=== PATIENT | female | born 2005 | race Caucasian/White ===

== ENCOUNTER → 2023-07-09 | Outpatient (CLI) | payer BC ==
--- NOTE | 2023-07-09 13:02 | US ---
EXAMINATION TYPE: US abdomen complete DATE OF EXAM: 07/09/2023 COMPARISON: NONE CLINICAL INDICATION: Female, 18 years old with history of R85.0 ABN LEVELS OF ENZYMES IN SPECIMENS FR OM DIGESTIVE ORGA; Pt states abnormal pancreatic labs, has no other complaints at this time TECHNIQUE: Multiple sonographic images of the abdomen are obtained. FINDINGS: EXAM MEASUREMENTS: Liver Length: 16.5 cm Gallbladder Wall: 0.2 cm CBD: 0.2 cm Spleen: 10.4 cm Right Kidney: 11.5 x 2.8 x 5.1 cm Left Kidney: 11.7 x 4.3 x 4.9 cm X RAY PHYSICIAN NOTES: Pancreas: wnl Liver: wnl Gallbladder: wnl Evidence for sonographic Martinez's sign: No CBD: wnl Spleen: wnl Right Kidney: wnl Left Kidney: wnl Upper IVC: wnl Abd Aorta: wnl No abnormality visualized within abdomen at this time IMPRESSION: 1. Normal abdomen ultrasound.
== END | disposition home or self-care (01) ==
LOC: RADUSWWP 07:09
PROVIDERS: ATTEND Family Medicine
DX: R85.0 Abnormal level of enzymes in specimens from digestive organs and abdominal cavity (principal)
CPT/HCPCS: 76700

== ENCOUNTER 2023-08-17 13:06 | Day surgery (SDC) | payer BC ==
[~2023-08-17 13:06] MED LIST: LIDOCAINE 1% (10MG/ML) FOR IV START INTRADERMA PRN
[2023-08-17] MEDS: LACTATED RINGERS 1,000 ML IV SCH (15:06)
[2023-08-17 15:27] VITALS: TEMP 98.2
[2023-08-17] MEDS ORDERED: PROPOFOL 10 MG/ML 20 ML VIAL IV ONE (16:11)
--- NOTE | 2023-08-17 16:20 | P.PCN ---
Date of Procedure: 08/17/23 Procedure(s) Performed: BRIEF HISTORY: Patient is a 18-year-old, pleasant, white female scheduled for an upper endoscopy as a part of evaluation of abdominal bloating and positive celiac serology.. PROCEDURE PERFORMED: Esophagogastroduodenoscopy with biopsy. PREOPERATIVE DIAGNOSIS: Positive serology for celiac disease. IV sedation per anesthesia. PROCEDURE: After informed consent was obtained, the patient was brought into the endoscopy unit. IV sedation was administered by Anesthesia under continuous monitoring. Initially the Olympus GIF-140 video endoscope was inserted into the mouth. Esophagus intubated without any difficulty. It was gradually advanced into the stomach and duodenum and carefully examined. The bulb and the second part of the duodenum appeared normal. Multiple biopsies were done from the duodenum to evaluate for celiac disease the scope at this time was withdrawn to the stomach, adequately insufflated with air, and upon careful examination, mucosa of the antrum, patchy areas of erythema which was biopsied. Mucosa of the body, cardia and the fundus appeared normal. The scope was then withdrawn into the esophagus. The GE junction was located at 39 cm from the incisors. Small hiatal hernia noted. The esophagus appeared normal. There was circumferential erythema of the GE junction consistent with LA grade a reflux esophagitis. Rest of the esophagus appeared normal and the patient tolerated the procedure well. IMPRESSION: 1. Mucosa of the duodenum appeared normal status post multiple biopsies to evaluate for celiac disease. 2. Small hiatal hernia and LA grade a reflux esophagitis 3. Mild antral gastritis. RECOMMENDATIONS: The findings of this examination were discussed with the patient as well as her family. She was advised to follow-up with the biopsy results. Follow-up in the office in 2 weeks..
[2023-08-17 17:25] VITALS: BP 99/48; PULSE 61; RESP 18
== END 2023-08-17 17:16 | disposition home or self-care (01) ==
LOC: ORWHC2ENDO 13:06
PROVIDERS: ATTEND Internal Medicine Gastroenterology
DX: K29.50 Unspecified chronic gastritis without bleeding (principal); K44.9 Diaphragmatic hernia without obstruction or gangrene; K21.00 Gastro-esophageal reflux disease with esophagitis, without bleeding; K29.80 Duodenitis without bleeding; D72.820 Lymphocytosis (symptomatic); Z79.899 Other long term (current) drug therapy
CPT/HCPCS: 81025; 88305; 43239; J2704

== ENCOUNTER → 2024-03-07 | Outpatient (CLI) | payer BC ==
--- NOTE | 2024-03-07 12:14 | CT ---
EXAMINATION TYPE: CT abdomen pelvis wo/w con CT DLP: 1244 mGycm, Automated exposure control for dose reduction was used. DATE OF EXAM: 03/07/2024 11:48 AM COMPARISON: Abdominal ultrasound 07/09/2023 CLINICAL INDICATION:Female, 19 years old with history of R14.0 ABDOMINAL DISTENSION (GASEOUS); Abdomi nal pain, hx of celiac disease TECHNIQUE: Standard CT of the before and after the uneventful administration of 100 cc of Isovue-30 0 intravenously. Oral contrast was administered . Coronal and sagittal reformats were performed. FINDINGS: Limited examination due to paucity of intraabdominal fat. LOWER CHEST: Left lower lobe 3.6 mm solid pulmonary nodule (series 9, image 2). Doubtful clinical sig nificance due to patient's age. Remaining lungs are clear. ABDOMEN LIVER: Unremarkable GALLBLADDER AND BILE DUCTS: Unremarkable. PANCREAS: Unremarkable. SPLEEN: Unremarkable. ADRENAL GLANDS: Unremarkable. KIDNEYS AND URETERS: No evidence of hydronephrosis or renal calculus. The exam is symmetrically. Cont rast is demonstrated within both collecting systems on the delayed phase. PELVIS BLADDER: Incompletely distended but grossly unremarkable. REPRODUCTIVE: Unremarkable anteverted uterus. Crenulated corpus luteal cyst within the right ovary me asured 1.3 cm. ABDOMEN & PELVIS STOMACH AND BOWEL: Stomach and duodenum are unremarkable. Enteric contrast reaches the distal small b owel. Long segment circumferential wall thickening of the jejunum identified within the left upper qu adrant. No surrounding inflammatory changes. No evidence of bowel obstruction. PERITONEUM: No evidence of pneumoperitoneum. Small amount of free fluid in the pelvis which is likely physiologic. VASCULATURE: No evidence of aortic aneurysm. MUSCULOSKELETAL: No acute osseous abnormalities. Multilevel small Schmorl's nodes. LYMPH NODES: No evidence for lymphadenopathy. SOFT TISSUE/ABDOMINAL WALL: Unremarkable IMPRESSION: Circumferential wall thickening of the jejunum within the left upper quadrant which may relate to rep orted celiac disease versus other etiologies. No surrounding inflammatory changes. Consider further e valuation with small bowel follow-through. Otherwise no other evidence for acute abnormality. [facility], , 03/07/2024 12:12 PM
== END | disposition home or self-care (01) ==
LOC: RADCTMAIN 09:58
PROVIDERS: ATTEND Internal Medicine Gastroenterology
DX: N85.4 Malposition of uterus (principal); R14.0 Abdominal distension (gaseous); N83.11 Corpus luteum cyst of right ovary; K90.0 Celiac disease
CPT/HCPCS: 74178; Q9967

== ENCOUNTER → 2024-04-04 | Outpatient (CLI) | payer BC ==
--- NOTE | 2024-04-04 10:51 | XR ---
EXAMINATION TYPE: XR chest 2V DATE OF EXAM: 04/04/2024 10:18 AM COMPARISON: 03/31/2011 CLINICAL INDICATION: Female, 19 years old with history of R06.09 OTHER FORMS OF DYSPNEA, TECHNIQUE: Frontal and lateral views of the chest are obtained. FINDINGS: There is no focal air space opacity, pleural effusion, or pneumothorax seen. The cardiac silhouette size is within normal limits. The osseous structures are intact. IMPRESSION: No acute cardiopulmonary process. [facility], , 04/04/2024 10:49 AM
--- NOTE | 2024-04-04 12:07 | FL ---
EXAMINATION TYPE: FL UGI air w small bowel DATE OF EXAM: 04/04/2024 10:17 AM COMPARISON: None CLINICAL INDICATION:Female, 19 years old with history of K90.0 Celiac disease; TECHNIQUE: The procedure was explained and patient history elicited. All patient questions were ans wered prior to start of procedure. A concrete mixing plant superintendent radiograph of the abdomen was also reviewed. Multiple flu oroscopic spot images of the esophagus, stomach and duodenum were obtained following ingestion of liq uid barium and EZ-gas crystals. After the completion of the upper gastrointestinal examination, a de tailed small bowel examination was performed. The patient was asked to ingest additional liquid [place] um and incremental frontal abdominal radiographs were then taken until contrast was visualized in the cecum. Fluoroscopic time:1.35 min Fluoroscopic images:0 Radiographs taken: 66 DAP: NOT REPORTED [id number] FINDINGS: Upper GI examination: The concrete mixing plant superintendent abdominal radiograph demonstrates a normal bowel gas pattern without dilated loops of small or large bowel. There is no evidence for organomegaly or pneumoperitoneum. No abnormal calcificati ons. The visualized osseous structures are intact. The esophagus appears unremarkable without evidence of focal stricture, ulceration or abnormal outpou milagro. No hiatal hernia was visualized. No evidence of gastroesophageal reflux was seen when the p atient was instructed to bear down. The stomach and duodenum demonstrate a normal course and conto ur. There is no evidence of focal gastric or duodenal ulceration, stricture, or abnormal outpouching . Small bowel mucosal folds are felt to be within normal limits. Detailed small bowel examination: Contrast is seen extending from the duodenojejunal junction into the cecum after 30 minutes, which is facet unexpected.. The small bowel follows normal distribution and contour without any evidence of extraluminal or intraluminal irregularity. There is no displacement of bowel loops or extraluminal e xtravasation of contrast material. IMPRESSION: 1. No radiographic evidence for celiac disease. Normal upper gastrointestinal examination. 2. Small bowel contrast extending into the colon within 30 minutes which is faster than expected.. [facility], , 04/04/2024 12:05 PM
== END | disposition home or self-care (01) ==
LOC: RADFLMAIN 07:58
PROVIDERS: ATTEND Internal Medicine Gastroenterology
DX: R06.09 Other forms of dyspnea (principal); K90.0 Celiac disease
CPT/HCPCS: 71046; 74240; 74248